=== PATIENT | male | born 1965 | race Caucasian/White ===

== ENCOUNTER → 2017-08-29 | Outpatient (CLI) | payer BC ==
[~2017-08-29] MED LIST: EXEN10PE SQ; METF-324 PO
--- NOTE | 2017-08-29 16:46 | EKG ---
Date Performed: 08/29/2017 Time Performed: 10:10:36 PTAGE: 51 years EKG: Sinus rhythm . Normal ECG NO PREVIOUS TRACING DOCTOR: Tino Gallo Interpretating Date/Time 08/29/2017 16:43:09
== END ==
LOC: HCAV 09:58
PROVIDERS: ATTEND Orthopaedic Surgery
DX: Z01.818 Encounter for other preprocedural examination (principal)
CPT/HCPCS: 93005

== ENCOUNTER 2017-09-12 05:56 | Inpatient (IN) | payer BC ==
[~2017-09-12] VITALS: Ht 180.3 cm; Wt 116.2 kg
[~2017-09-12 05:56] MED LIST changes: +DIAZ10TA PO; -EXEN10PE SQ; +LISI-515 PO; +MELO7.5T27 PO; -METF-324 PO; +METF1000 PO; +NEXI40CA PO; +PERC5TAB12 PO; +ROSU1TAB8 PO
[2017-09-12] MEDS ORDERED: GENTAMICIN SULFATE 80 MG/2 ML VIAL ONE (06:09)
[2017-09-12] MEDS ORDERED: POVIDONE IODINE 7.5% SCRUB 118 ML BOTTLE TOPICAL SCH (06:30)
[2017-09-12] MEDS ORDERED: BUPIVACAINE LIPOSO PF 1.3% INJ 20 ML in SODIUM CHLORIDE 0.9% INJ 60 ML P-ARTICULR SCH (06:30)
[2017-09-12] MEDS ORDERED: TRANEXAMIC ACID IV SCH ×2 (06:30→10:30)
[2017-09-12] MEDS ORDERED: VANCOMYCIN 1500 MG/NS 500 ML (for 85-99 kg) IV SCH ×2 (06:30)
[2017-09-12] MEDS ORDERED: SODIUM CHLORIDE 0.9% IV SCH ×2 (06:30→10:30)
--- NOTE | 2017-09-12 06:31 | MH ---
cc: José Evans MD DATE OF ADMISSION: 09/12/2017 ADMITTING DIAGNOSIS: Osteoarthritis, right hip. PROPOSED SURGERY: Total hip replacement arthroplasty, right hip. ALLERGIES: NONE. PERSONAL HISTORY: He is a nonsmoker. 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 MEDICATIONS: 1. Metformin. 2. Meloxicam. 3. Quinton. 4. Lisinopril. PAST HISTORY: Arthritis, type 2 diabetes under good control and high blood pressure. PAST SURGERY: Arthroscopic surgery, right knee. PRESENT HISTORY: He has had pain since 2009 in the right groin and right hip. He used to think it was mostly from his back because he has had sciatica in the past. Recent x-ray done at a chiropractic clinic indicates that in addition to spondylosis of the lumbar spine, he has severe osteoarthritis of the right hip with [id number] without any bone loss. The procedure of total hip replacement arthroplasty and the posterior approach we are going to use, and the potential risks, hazards, complications and expected results and post-hospital and postoperative course have all been discussed in great detail with him. Postoperative rehabilitation has been discussed. The differences between posterior approach and anterior approach have been discussed. The possibility of myositis ossificans and prevention with indomethacin are discussed. He is also appraised of VTE prophylaxis and we are going to use aspirin in his case, but we may decide to change to Lovenox. The risks of dislocation, infection, limb length discrepancy have also been discussed. Informed consent obtained. No guarantees made. PHYSICAL EXAMINATION: GENERAL: Reveals a 6 feet tall, 245 pound white male who is somewhat anxious and apprehensive. HEENT: Head is normocephalic. Pupils reactive to light. Face Symmetrical. HEART: Regular rhythm, no murmurs. LUNGS: Clear to auscultation. ABDOMEN: Soft and supple. SKIN: Skin condition of the right hip and right lower extremity are good. EXTREMITIES: He has painful restriction of range of motion of the right hip in the supine position. Trendelenburg test is positive. He has palpable pedal pulses in the right foot and he moves his toes well. X-rays reveal evidence of end-stage osteoarthritis of the right hip. As mentioned before, he also has a significant degree of degenerative disc disease in the lumbar spine, but no osteophytic bridging noted. MD ENEDELIA Grover/PAVAN , 06:13 AM , 06:30 AM
[2017-09-12] MEDS ORDERED: POVIDONE IODINE 5% (ANTISEPSIS KIT) 4 APPLICATIONS EACH NARE PRN (06:45)
[2017-09-12] MEDS ORDERED: ceFAZolin 2 GM/NS PREMIX 100 ML IV SCH (06:45)
[2017-09-12] MEDS ORDERED: METOPROLOL TARTRATE 25 MG TAB PO PRN (06:45)
[2017-09-12] MEDS ORDERED: CHLORHEXIDINE GLUCONATE 2 % 1 PACK (2 CLOTHS) TOPICAL PRN (06:45)
[2017-09-12] MEDS ORDERED: LACTATED RINGER'S 1000 ML IV PRN (06:45)
[2017-09-12] MEDS ORDERED: SODIUM CHLORID 0.9% 500 ML IV PRN (06:45)
[2017-09-12] MEDS ORDERED: ACETAMINOPHEN 1000 MG/100 ML 100 ML IV ONE (06:55)
[2017-09-12] MEDS ORDERED: DEXMEDETOMIDINE HCL 200 MCG/2 ML VIAL ONE ×2 (06:55→06:59)
[2017-09-12] MEDS ORDERED: KETAMINE HCL 500 MG/5 ML VIAL ONE (06:59)
[2017-09-12] MEDS ORDERED: KETAMINE HCL 500 MG/10 ML VIAL ONE (06:59)
[2017-09-12] MEDS ORDERED: TRANEXAMIC ACID INJ 0 MG in SODIUM CHLORIDE 0.9% INJ 100 ML IV SCH (10:30)
[2017-09-12] MEDS ORDERED: diphenhydrAMINE HCL 50 MG/ML VIAL IV PUSH PRN (10:30)
[2017-09-12] MEDS ORDERED: ONDANSETRON HCL 4 MG/2 ML VIAL IVP PRN (10:30)
[2017-09-12] MEDS ORDERED: NALOXONE HCL 0.4 MG/ML AMP IV PUSH PRN (10:30)
[2017-09-12] MEDS ORDERED: Post-op Orders (for Pharmacy) XX ONE (10:30)
[2017-09-12] MEDS ORDERED: TEMAZEPAM 15 MG CAP PO PRN (10:30)
[2017-09-12] MEDS ORDERED: DO NOT ADM ANY ANTICOAGULANT DRUGS PRN (10:40)
[2017-09-12] MEDS ORDERED: HYDR-3516 PO (10:45)
[2017-09-12] MEDS ORDERED: ASPI325T33 PO (10:45)
[2017-09-12] MEDS ORDERED: DEXTROSE 50% IN WATER 50 ML VIAL(D50) IV PUSH PRN (10:45)
[2017-09-12] MEDS ORDERED: TRAM50 PO (10:45)
[2017-09-12] MEDS ORDERED: INDO75CA3 PO (10:45)
[2017-09-12] MEDS ORDERED: GLUCAGON 1 MG/ML VIAL OTHER PRN (10:45)
--- NOTE | 2017-09-12 10:47 | HHI.FF ---
Face to Face Verification Diagnosis: (1) S/P total hip arthroplasty Physical Therapy Gait training Hip: Total hip, Protocol: Right, Posterior hip precautions, Abduction pillow while in bed Right LE Weight Bearing: WB as tolerated Right LE Range of Motion: Active Assistive ROM Nursing Nursing: Dressing changes (START ON 09/19, USE PRIMAPORE) Dressing Changes: Coverderm/Primapore I have seen patient Adalberto Juarez on 09/12/17. My clinical findings support the need for the requested home health care services because: Limited ability to care for self I certify that my clinical findings support that this patient is homebound because: Unsafe to leave home unassisted Unable to use public transportation José Evans MD Sep 12, 2017 10:47
[2017-09-12] MEDS ORDERED: MORPHINE SULFATE 4 MG/ML INJ ONE (10:48)
[2017-09-12] MEDS ORDERED: WALKER/ADULT/FO1 MIS (10:49)
[2017-09-12] MEDS ORDERED: ADJUSTABLE COMM1 MIS (10:49)
[2017-09-12] MEDS ORDERED: MIDAZOLAM HCL 2 MG/2 ML VIAL ONE (10:49)
[2017-09-12] MEDS ORDERED: *MEPERIDINE 25 MG INJ VIAL PERIprocedural Use ONLY ONE (11:07)
[2017-09-12] MEDS: MORPHINE SULFATE 30 MG/30 ML PCA IV SCH ×2 (11:20→17:32)
[2017-09-12] MEDS ORDERED: KETOROLAC TROMETHAMINE 30 MG/ML (IVP) VIAL ONE (11:25)
--- NOTE | 2017-09-12 11:35 | MP ---
cc: José Evans MD DATE OF OPERATION: 09/12/2017 DATE OF : 1965 DATE OF SURGERY: 09/12/2017 PREOPERATIVE DIAGNOSIS: Osteoarthritis, right hip. POSTOPERATIVE DIAGNOSIS: Osteoarthritis, right hip. OPERATIVE PROCEDURE: Total hip replacement arthroplasty right hip, using Biomet uncemented components: 1. Cup: 58 mm Karla cup with 2 dome screws. 2. Polyethylene liner: Flat-faced 36 mm. 3. Stem: Lateral offset, 17 mm Taperloc. 4. Head: Ceramic 36 mm with a +3 neck length. SURGEON: Dr. Evans ANESTHESIA: General. PROCEDURE: After induction of general anesthesia, the patient was placed in right lateral position, supported with Biomet hip positioner. Strict lateral position was ascertained. Well leg and upper extremity was properly positioned and secured. Axillary roll was placed. Right hip and lower extremity were thoroughly prepped with alcohol and ChloraPrep and draped in routine fashion. A 12-15 cm long lateral incision was made centered on the greater trochanter, deepened through subcutaneous tissue and fascia. The fibers of the gluteus vikas were . Bursa was dissected. A self-retaining retractor was introduced. The patient had a fairly brisk bleeding everywhere, all the way from skin through subcutaneous tissue, fascia, capsule, etc, even though his blood pressure was maintained around the 110 systolic. Hemostasis was obtained by cautery. The hip was internally rotated and the short external rotators identified and tagged and a flap of short external rotators and capsule was raised in an inverted L-shaped fashion with the vertical limb of the L along the intertrochanteric line. The gluteus minimus was dissected off the bone of the acetabulum and the stem. Steinmann pin was placed perpendicular to the floor and bent at 90 degrees and length and offset were measured on a chetan on the greater trochanter. The hip was dislocated, followed by femoral neck osteotomy. Acetabulum was exposed and prepared by excising the labrum, limited excision of the anterior capsule, etc. Acetabulum was deepened and there was sequential reaming and trials, a 58 mm cup was impacted in place in 45 degrees of abduction and 20 degrees of anteversion. Two dome screws were placed. A flat-faced liner was impacted in place. The femur was prepared following routine technique using a cookie cutter and lateralizer and sequential broaching was carried out to 17 mm. A calcar reamer was used. Trial reduction was carried out with a standard offset and a -3 head and there was good position, alignment and stability, but there was about 7 mm loss of offset and no lengthening. The patient needed the leg lengthened by about 7 mm. The hip was dislocated and trial implants were removed and 17 mm lateral offset Taperloc stem was impacted in place, followed by placing a +3 ceramic, 36 mm head on the Pitts taper and doing a final reduction. Final measurements revealed only about 3-4 mm loss of offset and about 7 mm of lengthening. The wound was irrigated with saline solution, followed by reattachment of the cuff of capsule and short rotators to the posterior margin of the greater trochanter. The fascia was closed with #2 Quill and #2 Vicryl, the subcutaneous tissue closed with 2-0 Rapide Vicryl, skin with subcuticular 3-0 Rapide and Steri-Strips. A super-absorbent dressing was placed and the patient was transferred to the recovery room in satisfactory condition with an abduction pillow. The patient tolerated the procedure well. TRANSFUSIONS AND COMPLICATIONS: None. POSTOPERATIVE CONDITION: Satisfactory. PROGNOSIS: Good. ESTIMATED BLOOD LOSS: 500-600 mL. MD ENEDELIA Grover/YANELI , 10:54 AM , 11:33 AM
[2017-09-12] MEDS: SODIUM CHLOR 0.9% 1000 ML INJ 1,000 ML IV SCH ×2 (11:38→20:12)
[2017-09-12] MEDS ORDERED: HYDROmorphone HCL PF 0.5 MG/0.5 ML SYRINGE ONE (11:41)
[2017-09-12] MEDS ORDERED: STERILE WATER FOR INJECTION 20 ML VIAL IV ONE (12:00)
[2017-09-12] MEDS ORDERED: NEOSTIGMINE 5 MG/5 ML SYRINGE IV PUSH ONE (12:00)
[2017-09-12] MEDS ORDERED: ONDANSETRON HCL 4 MG/2 ML VIAL IV ONE (12:00)
[2017-09-12] MEDS ORDERED: GLYCOPYRROLATE 1 MG/5 ML SYRINGE IV PUSH ONE (12:00)
[2017-09-12] MEDS: INSULIN NovoLIN REGULAR SUPPLEMENTAL SCALE SQ SCH ×3 (12:00→20:25)
[2017-09-12] MEDS ORDERED: PROPOFOL 200 MG/20 ML AMP IV ONE (12:00)
[2017-09-12] MEDS ORDERED: DEXAMETHASONE SOD PHOS 4 MG/ML VIAL IV ONE (12:00)
[2017-09-12] MEDS: ACETAMINOPHEN 1000 MG/100 ML VIAL IV SCH ×2 (12:00→20:12)
[2017-09-12] MEDS ORDERED: LIDOCAINE HCL 1% PF 5 ML SYRINGE OTHER ONE (12:00)
[2017-09-12] MEDS ORDERED: LACTATED RINGER'S 1000 ML INJ 1,000 ML IV ONE (12:00)
[2017-09-12] MEDS ORDERED: PHENYLEPH/NS 1000 MCG/10 ML SYR IV ONE (12:00)
[2017-09-12] MEDS ORDERED: ePHEDrine/NS 25 MG/5 ML SYRINGE IV ONE (12:00)
[2017-09-12] MEDS ORDERED: ROCURONIUM INJ 50 MG/5 ML SYRINGE IV PUSH ONE (12:00)
--- NOTE | 2017-09-12 12:26 | RADRPT ---
EXAM DATE/TIME: 09/12/2017 11:35 [facility] COMPARISON: No previous studies available for comparison. INDICATIONS : Post op right hip. MEDICAL HISTORY : Unobtainable. SURGICAL HISTORY : Unobtainable. ENCOUNTER: Initial ACUITY: 1 day PAIN SCORE: 10/10 LOCATION: Right hip. FINDINGS: 2 views of the right hip are performed. The lateral view is essentially nondiagnostic. Right hip arth roplasty in place. Arthroplasty components are intact and in grossly anatomic alignment. Osseous stru ctures appear intact without acute fracture. CONCLUSION: 1. Status post right hip arthroplasty, as above. Hakeem Felipe MD on September 12, 2017 at 12:22 Board Certified Radiologist. This report was verified electronically.
[2017-09-12] MEDS: DIAZEPAM 10 MG TAB PO PRN ×2 (12:33→20:11)
[2017-09-12] MEDS: PCA - TOTAL MG MORPHINE DELIVERED PER SHIFT SCH ×2 (14:00→21:57)
[2017-09-12 16:00] VITALS: BP 126/82; PULSE 85; RESP 18; TEMP 97.3; O2SAT 97
[2017-09-12] MEDS: CEFAZOLIN INJ 2,000 MG in SODIUM CHLORIDE 0.9% INJ 100 ML IV SCH (17:15)
[2017-09-12] MEDS: metFORMIN HCL 500 MG TAB PO SCH (17:16)
[2017-09-12] MEDS: ACETAMINOPHEN/HYDROcodone 325 MG/5 MG TAB PO PRN (18:50)
[2017-09-12 20:00] VITALS: BP 130/63; PULSE 87; RESP 18; TEMP 97.8; O2SAT 96
[2017-09-12] MEDS: KETOROLAC TROMETHAMINE 30 MG/ML (IVP) VIAL IVP SCH (20:11)
[2017-09-12] MEDS: ASPIRIN EC 325 MG TABEC PO SCH (20:11)
[2017-09-12] MEDS: INDOMETHACIN 75 MG CONTROLLED RELEASE CAP PO SCH (20:24)
[2017-09-12] MEDS ORDERED: VANCOMYCIN INJ 1,500 MG in SODIUM CHLORID 0.9% 500 ML INJ 500 ML IV SCH (23:00)
[2017-09-13] VITALS (7 sets, daily range): BP systolic 108–144; BP diastolic 58–84; PULSE 72–91; RESP 18; TEMP 97–97.8; O2SAT 96–100
[2017-09-13] MEDS: CEFAZOLIN INJ 2,000 MG in SODIUM CHLORIDE 0.9% INJ 100 ML IV SCH ×2 (01:28→10:40)
[2017-09-13] MEDS: ACETAMINOPHEN/HYDROcodone 325 MG/5 MG TAB PO PRN ×3 (01:35→20:32)
[2017-09-13] MEDS: SODIUM CHLOR 0.9% 1000 ML INJ 1,000 ML IV SCH ×3 (02:48→20:00)
[2017-09-13] MEDS: KETOROLAC TROMETHAMINE 30 MG/ML (IVP) VIAL IVP SCH ×3 (05:33→20:34)
[2017-09-13] MEDS: MORPHINE SULFATE 30 MG/30 ML PCA IV SCH (05:34)
[2017-09-13] MEDS: PCA - TOTAL MG MORPHINE DELIVERED PER SHIFT SCH (05:43)
[2017-09-13 07:26] LABS: HEMATOCRIT 34.1 % (39.0-51.0); HEMOGLOBIN 11.4 GM/DL (13.0-17.0)
--- NOTE | 2017-09-13 07:38 | PD.ORT.PN ---
Subjective Post Op Day #: 1 Subjective Remarks got uo yesterday and walked. He says he got up on left side of bed without abdn pillow , aducted leg all the way and got really scared, last night, feels OK now Preop arthritic pain gone Objective Vitals Last 72 hours Impressions Hip X-Ray 09/12/17 0000 Signed Impressions: Service Date/Time: Tuesday, September 12, 2017 11:35 - CONCLUSION: 1. Status post right hip arthroplasty, as above. Hakeem Felipe MD Vital Signs Date Time Temp Pulse Resp B/P (MAP) Pulse Ox O2 Delivery O2 Flow Rate FiO2 09/13/17 05:43 18 09/13/17 05:34 16 09/13/17 04:00 97.4 72 18 108/74 (85) 99 09/13/17 00:00 97.0 91 18 124/58 (80) 96 09/12/17 21:57 18 09/12/17 20:00 97.8 87 18 130/63 (85) 96 09/12/17 16:00 97.3 85 18 126/82 (97) 97 09/12/17 14:00 97.5 85 15 104/60 (75) 97 Nasal Cannula 2 09/12/17 13:00 75 12 111/68 (82) 97 Nasal Cannula 2 09/12/17 12:00 76 15 108/55 (72) 96 Nasal Cannula 2 09/12/17 11:45 74 14 110/60 (77) 96 Nasal Cannula 2 09/12/17 11:30 69 13 110/59 (76) 96 Nasal Cannula 2 09/12/17 11:20 15 09/12/17 11:15 70 14 115/66 (82) 95 Nasal Cannula 2 09/12/17 11:00 69 15 106/61 (76) 92 Nasal Cannula 5 09/12/17 10:44 97.5 65 18 91/52 (65) 94 Nasal Cannula 5 I/O 09/12/17 09/12/17 09/12/17 09/13/17 09/13/17 09/13/17 07:00 15:00 23:00 07:00 15:00 23:00 Intake Total 2071.6 ml 480 ml Output Total 4700 ml 100 ml 850 ml Balance -2628.4 ml 380 ml -850 ml Intake Oral 35 ml 480 ml IV Total 2036.6 ml Output Urine Total 1200 ml 100 ml 850 ml Estimated Blood Loss 500 ml Other 3000 ml # Bowel Movements 0 Result Diagram: 09/13/17 0600 Objective Remarks Was sleeping comfortably. legs in abdn pillow. Right leg in good orientation. Moves warm toes well. Assessment & Plan Ortho Post Op Day #: 1 Problem List: Assessment and Plan doing well POD 1, right SWAPNA DC fri/sat with [facility] José Evans MD Sep 13, 2017 07:38
[2017-09-13 07:40] LABS: BICARBONATE 25.5 MEQ/L (21.0-32.0); CALCIUM 7.9 MG/DL (8.5-10.1); CREATININE 1.04 MG/DL (0.60-1.30)
[2017-09-13] MEDS: ACETAMINOPHEN 1000 MG/100 ML VIAL IV SCH ×2 (07:58→20:32)
[2017-09-13] MEDS: INSULIN NovoLIN REGULAR SUPPLEMENTAL SCALE SQ SCH ×4 (08:00→20:34)
[2017-09-13] MEDS: PANTOPRAZOLE SOD 40 MG DELAYED RELEASE TAB PO SCH (08:08)
[2017-09-13] MEDS: ATORVASTATIN 40 MG TAB PO SCH (08:08)
[2017-09-13] MEDS: metFORMIN HCL 500 MG TAB PO SCH ×2 (08:08→17:18)
[2017-09-13] MEDS: DIAZEPAM 10 MG TAB PO PRN ×2 (08:08→17:05)
[2017-09-13] MEDS: ASPIRIN EC 325 MG TABEC PO SCH (08:08)
[2017-09-13] MEDS: LISINOPRIL 20 MG TAB PO SCH (08:09)
[2017-09-13] MEDS: traMADol HCL 50 MG TAB PO PRN ×2 (15:24→17:19)
[2017-09-13] MEDS ORDERED: MORPHINE SULFATE 4 MG/ML INJ IV PRN (20:15)
[2017-09-13] MEDS: DOCUSATE SODIUM 100 MG CAP PO SCH (20:32)
[2017-09-13] MEDS: INDOMETHACIN 75 MG CONTROLLED RELEASE CAP PO SCH (20:32)
[2017-09-14] VITALS: BP 135/74; PULSE 82; RESP 18; TEMP 98.4; O2SAT 97
[2017-09-14] MEDS: SODIUM CHLOR 0.9% 1000 ML INJ 1,000 ML IV SCH ×3 (04:00→20:00)
[2017-09-14] MEDS: KETOROLAC TROMETHAMINE 30 MG/ML (IVP) VIAL IVP SCH ×3 (05:12→21:26)
[2017-09-14 08:00] VITALS: BP 142/72; PULSE 88; RESP 18; TEMP 97.6; O2SAT 97
[2017-09-14] MEDS: INSULIN NovoLIN REGULAR SUPPLEMENTAL SCALE SQ SCH ×4 (08:00→21:00)
[2017-09-14] MEDS: ATORVASTATIN 40 MG TAB PO SCH (08:29)
[2017-09-14] MEDS: PANTOPRAZOLE SOD 40 MG DELAYED RELEASE TAB PO SCH (08:30)
[2017-09-14] MEDS: metFORMIN HCL 500 MG TAB PO SCH ×2 (08:30→18:06)
[2017-09-14] MEDS: LISINOPRIL 20 MG TAB PO SCH (08:30)
[2017-09-14] MEDS: ASPIRIN EC 325 MG TABEC PO SCH (08:30)
[2017-09-14] MEDS: DOCUSATE SODIUM 100 MG CAP PO SCH ×2 (08:30→21:26)
--- NOTE | 2017-09-14 08:30 | PD.ORT.PN ---
Subjective Post Op Day #: 2 Pain Scale: ??? Subjective Remarks Walked to nurses station and got severe pain Was agitating nurses to resume [employer] yesterday Objective Vitals Vital Signs Date Time Temp Pulse Resp B/P (MAP) Pulse Ox O2 Delivery O2 Flow Rate FiO2 09/14/17 06:06 18 09/14/17 00:00 98.4 82 18 135/74 (94) 97 09/13/17 22:27 18 09/13/17 22:11 Room Air 09/13/17 21:17 18 09/13/17 21:16 18 09/13/17 20:00 97.8 87 18 144/84 (104) 100 09/13/17 16:00 97.8 83 18 117/76 (90) 99 09/13/17 12:00 97.5 85 18 119/78 (92) 96 09/13/17 10:47 99 21 I/O 09/13/17 09/13/17 09/13/17 09/14/17 09/14/17 09/14/17 07:00 15:00 23:00 07:00 15:00 23:00 Intake Total 800 ml 240 ml Output Total 850 ml 600 ml 600 ml Balance -850 ml 200 ml -360 ml Intake Oral 800 ml 240 ml Output Urine Total 850 ml 600 ml 600 ml # Bowel Movements 0 0 Result Diagram: 09/13/17 0600 09/13/17 0600 Objective Remarks Resting very comfortably with leg in good orientation , in bed, moves toes well Assessment & Plan Ortho Post Op Day #: 2 Problem List: Assessment and Plan Pain mgmt issues Start oxycontin, DC narco Continue Ofirmev an d tramadol DC fr/sat with José Soto MD Sep 14, 2017 08:30
[2017-09-14] MEDS: ACETAMINOPHEN 1000 MG/100 ML VIAL IV SCH ×2 (08:31→21:25)
[2017-09-14 09:58] VITALS: O2SAT 97
[2017-09-14] MEDS: oxyCODONE HCL 20 MG CONTROLLED RELEASE TAB PO SCH ×2 (10:41→21:26)
[2017-09-14 12:00] VITALS: BP 144/70; PULSE 88; RESP 18; TEMP 98; O2SAT 98
[2017-09-14 16:00] VITALS: BP 168/77; PULSE 96; RESP 18; TEMP 98.1; O2SAT 98
[2017-09-14] MEDS: traMADol HCL 50 MG TAB PO PRN (18:07)
[2017-09-14 20:00] VITALS: BP 146/80; PULSE 93; RESP 18; TEMP 97.7; O2SAT 97
[2017-09-14] MEDS: INDOMETHACIN 75 MG CONTROLLED RELEASE CAP PO SCH (21:26)
[2017-09-15] VITALS: BP 142/70; PULSE 85; RESP 18; TEMP 97.6; O2SAT 97
[2017-09-15] MEDS: SODIUM CHLOR 0.9% 1000 ML INJ 1,000 ML IV SCH ×2 (03:45→09:19)
[2017-09-15] MEDS: KETOROLAC TROMETHAMINE 30 MG/ML (IVP) VIAL IVP SCH ×2 (05:30→13:26)
[2017-09-15 07:43] VITALS: BP 146/89; PULSE 82; RESP 18; TEMP 98.2; O2SAT 96
[2017-09-15] MEDS: INSULIN NovoLIN REGULAR SUPPLEMENTAL SCALE SQ SCH ×2 (08:00→12:00)
[2017-09-15] MEDS: ASPIRIN EC 325 MG TABEC PO SCH (09:00)
[2017-09-15] MEDS: LISINOPRIL 20 MG TAB PO SCH (09:00)
[2017-09-15] MEDS ORDERED: oxyCODONE SR PO (09:08)
[2017-09-15] MEDS: metFORMIN HCL 500 MG TAB PO SCH (09:11)
[2017-09-15] MEDS: DOCUSATE SODIUM 100 MG CAP PO SCH (09:12)
[2017-09-15] MEDS: ATORVASTATIN 40 MG TAB PO SCH (09:12)
[2017-09-15] MEDS: oxyCODONE HCL 20 MG CONTROLLED RELEASE TAB PO SCH (09:15)
[2017-09-15] MEDS: ACETAMINOPHEN 1000 MG/100 ML VIAL IV SCH (09:15)
[2017-09-15] MEDS: PANTOPRAZOLE SOD 40 MG DELAYED RELEASE TAB PO SCH (09:15)
--- NOTE | 2017-09-15 09:41 | MD ---
cc: José Evans MD DATE OF DISCHARGE: ADMISSION DIAGNOSIS: End-stage osteoarthritis, right hip. DISCHARGE DIAGNOSES: 1. End-stage osteoarthritis, right hip. 2. Type 2 diabetes. HISTORY OF PRESENT ILLNESS AND HOSPITAL COURSE: History consisted of long history of problems with the hip and lower back, but the hip pain has gotten disabling, needing narcotic pain medications and shortening of the leg and limping and some bone loss on the femoral head and therefore, he was appropriate workup and had a total hip replacement arthroplasty performed on the day of admission, through a posterior approach. Postoperative course was eventful only for tremendous difficulty with pain management on the evening of the first postoperative day, patient wanted to continue [employer], but we just put him on IV morphine as needed and continued the hydrocodone, the tramadol, IV Toradol, IV Tylenol and other pain measures. On the second postoperative day, hydrocodone was discontinued and he was placed on OxyContin 20 mg q.12 hours, which has worked very well in controlling his pain. Patient has been ambulatory. Dislocation precautions have been applied prior to nation. Incision today reveals that he has quite a lot of bruising around the incision. Therefore, I took the dressings off. Incision looks satisfactory with no active bleeding or drainage. It is dry. A new dressing will be applied. One of those dressings that can stay on for several days. Home care has been arranged for him. DISCHARGE MEDICATIONS: Indocin SR 75 one daily to prevent myositis ossificans, EC aspirin, 325 daily for VTE prophylaxis, Tramadol 100 mg q.8 hours p.r.n. for breakthrough pain, OxyContin 20 mg q.12 hours, #28 for pain control. The patient's laboratory studies are satisfactory postoperative x-rays showed good alignment of the prosthesis. The patient to call the office Sunday for appointment to see me 1 week from Sunday. I told him that if there is any drainage at all, to call and let me know. Appropriate orders have been written for home care to change dressings as needed or next Sunday. MD ENEDELIA Grover/SANJEEV , 09:20 AM , 09:40 AM
== END 2017-09-15 15:06 | disposition home health service (06) | DRG 470 ==
LOC: HSDI 05:56 → N06B 14:32
PROVIDERS: ADMIT Orthopaedic Surgery; ATTEND Orthopaedic Surgery
PROC: 0SR904A Replacement of Right Hip Joint with Ceramic on Polyethylene Synthetic Substitute, Uncemented, Open Approach (ICD-10-PCS; principal; 2017-09-12 07:24)
DX: M16.11 Unilateral primary osteoarthritis, right hip (principal); E11.9 Type 2 diabetes mellitus without complications; Z79.84 Long term (current) use of oral hypoglycemic drugs; M47.816 Spondylosis without myelopathy or radiculopathy, lumbar region; M51.36 Other intervertebral disc degeneration, lumbar region
CPT/HCPCS: 73502; 80048; 82948; 85014; 85018; 86850; 86900; 86901; 94150; C1776; C9290; J0131; J0690; J1100; J1170; J1580; J1885; J2175; J2250; J2270; J2370; J2405; J2710; J3370; J7030; J7040; J7120